=== PATIENT | female | born 1955 | race Caucasian/White ===

== ENCOUNTER → 2024-03-10 07:48 | Outpatient (REF) | payer MEDICARE, SELFPAY | LOC: HWRAD 07:48 | PROVIDERS: ATTENDING PHYSICIAN Family Medicine | DX: M17.10 Unilateral primary osteoarthritis, unspecified knee (principal); M70.51 Other bursitis of knee, right knee; T14.8XXA Other injury of unspecified body region, initial encounter; Z78.0 Asymptomatic menopausal state | CPT/HCPCS: 77080 ==

== ENCOUNTER → 2024-11-18 14:21 | Outpatient (REF) | payer MEDICARE, SELFPAY | LOC: HWWDC 14:21 | PROVIDERS: ATTENDING PHYSICIAN Obstetrics & Gynecology; FAMILY PHYSICIAN Family Medicine | DX: Z12.31 Encounter for screening mammogram for malignant neoplasm of breast (principal) | CPT/HCPCS: 77063; 77067 ==